=== PATIENT | female | born 1980 | race Caucasian/White ===

== ENCOUNTER 2017-11-14 13:37 | Outpatient (CLI) | payer BC ==
--- NOTE | 2017-11-14 15:45 | RAD ---
HYSTEROSALPINGOGRAM: 11/14/17 HISTORY: Infertility. Endometriosis. FINDINGS: After explaining the procedure and answering all questions, the uterine cervix was prepped. Some diff iculty was encountered advancing an HSG catheter through the cervix. Retention balloon was inflated. Approximately 10 mL of Isovue 300 contrast was instilled into the endometrial cavity, revealing brandy l contour. There was early opacification of the right fallopian tube with free spill. Continued gentl e pressure was applied with the fluid in an attempt to opacify the left fallopian tube. The tube was unable to be opacified. Excess contrast was aspirated. Patient tolerated the procedure well and was dismissed in good conditi on. IMPRESSION: 1. Nonpatent left fallopian tube, unable to be opacified with fluid pressure of contrast. 2. Indeterminate degree of cervical stenosis with some difficulty in passage of HSG catheter. POS: [facility]
== END 2017-11-14 13:38 | disposition home or self-care (01) ==
LOC: RAD 13:37
PROVIDERS: ATTEND Obstetrics & Gynecology
DX: Z31.41 Encounter for fertility testing (principal); N88.2 Stricture and stenosis of cervix uteri
CPT/HCPCS: 58340; 74740

== ENCOUNTER 2018-06-09 02:40 | Day surgery (SDC) | payer BC ==
[2018-06-09 03:14] VITALS: BP 164/91; TEMP 98.2; BMI 22.8
--- NOTE | 2018-06-09 04:02 | PDOC.FPROB ---
FMR OB H&P: HPI - History of Present Illness Chief Complaint: Ctx, Vaginal Pressure History of Present Illness: 38 yo @ 27.2 weeks presents for c/c of ctx and vaginal pressure. Pt reports last night feeling some vaginal pressure and then having a 2 hour period of ctx 15 min apart from 20-22:00. They then subsided and was able to fall asleep. She then was awoken by a ctx at 2:00 this morning and again feeling vaginal pressure. She reports having a few ctx about 30 min apart. Reports she has been drinking plenty of fluids. Denies any recent trauma or sexual intercourse. Pt denies any fever/chills. Denies any recent illness. Denies any n/v/d/c. +FM, denies any LOF, vaginal bleeding. Reports vaginal discharge but denies any odor, itching or irritation. Reports normal discharge for her this . Denies any urinary sx's such as increased frequency and burning when urinating. Denies any headaches, vision changes or swelling. Pt denies any issues with first . Delivered at term. No issues with Preeclampsia. Pt reports BP has slowly been creeping up the last few weeks. Was taken off beta yadira for bp earlier in . Primary Care Physician: Dr. Barnett FMR OB H&P: Current - Care : 2 Para: 1 Gestational age: 27.2 - OB Labs Blood type: unknown RH: unknown Antibody Screen: unknown HIV: unknown RPR: unknown HepBsAg: unknown Quad screen: unknown Gonorrhea: unknown Chlamydia: unknown - Additional Ultrasound Additional: Pt denies anything abnormal reported on U/S FMR OB H&P: History - Past Medical History PMH: Hyperthyroidism-->Now Hypothyroid, cHTN - OB History OB History: cHTN - Surgical History Sx History: Broken Femur Repair, Endometriosis Removal (2015) - Social History Social History: Denies any tobacco, alcohol or illicit drug use at this time. FMR OB H&P: Medications - Current Home Medications: Medication Instructions Recorded Confirmed Type [id number]/Iron Fum/Folic 1 each PO DAILY 05/27/16 06/09/18 History [ Tablet] Aspirin [Aspirin Chewable] 81 mg PO DAILY 06/09/18 06/09/18 History Levothyroxine Sodium 1 tab PO DAILY 06/09/18 06/09/18 History Allergies/Adverse Reactions: Allergies Allergy/AdvReac Type Severity Reaction Status Date / Time No Known Drug Allergies Allergy Verified 05/27/16 03:02 FMR OB H&P: ROS - Review of Systems General: denies: fever/chills, fatigue, recent trauma Eyes: denies: vision changes ENT: denies: nasal congestion, rhinorrhea, sore throat Cardiovascular: denies: chest pain, palpitation, edema Respiratory: denies: cough, congestion, shortness of breath Gastrointestinal: denies: abdominal pain, nausea, vomiting, diarrhea, constipation Genitourinary (Female): reports: vaginal discharge (Reports some increased vaginal discharge but has been increased throughout), contractions, vaginal pressure. denies: incontinence, hematuria, vaginal pain, vaginal bleeding Neurologic: denies: numbness, weakness, headache Integumentary: denies: itching, rash Endocrine: denies: cold intolerance, heat intolerance Hematologic/Lymphatic: denies: prolonged or excessive bleeding FMR OB H&P: Vital Signs - Maternal Vital signs: Vital Signs - First Documented Temp Pulse Resp BP 98.2 F 75 18 164/91 H 06/09/18 03:00 06/09/18 03:00 06/09/18 03:00 06/09/18 03:00 - Heart Tones Baseline: 140 Variability: moderate Acceleration: present Category: category 1 [place] contractions every: 2 seen on monitor, non regular FMR OB H&P: Physical Exam - Physical Exam General: NAD, awake, alert and oriented HEENT: normocephalic and atraumatic, PERRLA Neck: supple Heart: RRR, normal S1/S2, no murmurs/rubs/gallops, pulses present, no edema General: CTAB, no respiratory distress, good air movement, no rales/rhonchi, no wheezing, no retractions Abdomen: soft, gravid, non-tender, no masses, no hernias Musculoskeletal: normal gait and station, pulses present, FROM in all four extremities Neurological: sensation to pain,touch and proprioception grossly normal, DTR +2 , no focal deficit Skin: no rash, capillary refill <2 seconds Lymphatic: no unusual bruising or bleeding Psychiatric: good judgement and insight, normal mood and affect - Pelvic Exam Deviation from normal: Vaginal wall red, irritated. Pt reports some burning when touched SVE: closed/0/-3. Meza score: 0 FMR OB H&P: A/P - Problem List (1) Status: Acute Qualifiers: Weeks of gestation: 27 weeks Qualified Code(s): Z3A.27 - 27 weeks gestation of (2) Hypertension Current Visit: Yes Status: Acute Code(s): I10 - ESSENTIAL (PRIMARY) HYPERTENSION Qualifiers: Hypertension type: essential hypertension Qualified Code(s): I10 - Essential (primary) hypertension Disposition: 38 yo @ 27.2 weeks here to r/o labor. -Will check fibronectin at this time. -will continue FHT monitoring. Few ctx seen, not regular. Cat 1 strip. -cervical check closed/0/-3. Meza score 0. Low risk at this time. -Will check VP3 as during fibronectin pt was red and reported some pain along the vaginal wall. cHTN -Pt having elevated BP in the 140's/100's. Has had one severe range pressure. Will continue to monitor. -Will want to have close f/u early this week to discuss starting medication and possibly checking pre-E labs. Discussion: Date/Time: 06/09/18 0356 This H&P was discussed with [] who agree with the above documentation and plan.
[2018-06-09 05:18] LABS: FFN Internal QC Analyzer PASS (PASS); FFN Internal QC Cassette PASS (PASS); Fetal Fibronectin Negative (Negative)
== END 2018-06-09 05:35 | disposition home or self-care (01) ==
LOC: L&D/OP 02:40
PROVIDERS: ATTEND Family Medicine
DX: O99.89 Other specified diseases and conditions complicating pregnancy, childbirth and the puerperium (principal); R10.30 Lower abdominal pain, unspecified; R10.2 Pelvic and perineal pain; N89.8 Other specified noninflammatory disorders of vagina; O10.912 Unspecified pre-existing hypertension complicating pregnancy, second trimester; O99.282 Endocrine, nutritional and metabolic diseases complicating pregnancy, second trimester; E03.9 Hypothyroidism, unspecified; Z3A.27 27 weeks gestation of pregnancy; Z79.82 Long term (current) use of aspirin; Z79.899 Other long term (current) drug therapy
CPT/HCPCS: 82731; 87480; 87510; 87660; 99285

== ENCOUNTER 2018-08-26 07:44 | Inpatient (IN) | payer BC ==
[2018-08-26 08:11] VITALS: BMI 25.0
[2018-08-26] MEDS ORDERED: Mineral Oil PER 1 ML TOP PRN (08:47)
[2018-08-26] MEDS: Lactated Ringer's 1,000 ML IV SCH ×2 (08:50→13:41)
[2018-08-26] MEDS ORDERED: Bicitra 30 ML UDCUP ONE (09:00)
[2018-08-26] MEDS ORDERED: Terbutaline Sulfate 1 MG/ML VIAL ONE (09:00)
[2018-08-26] MEDS ORDERED: Terbutaline Sulfate 1 MG/ML VIAL SC SCH (09:00)
--- NOTE | 2018-08-26 09:35 | PRG ---
DATE OF SERVICE: 08/26/2018 OBSERVATION NOTE TIME OF SERVICE: 0900 hours. PRESENTING COMPLAINT: Breech presentation at 38 weeks gestation. HISTORY OF PRESENT ILLNESS: Ms. Ramirez is a 38-year-old, 2, para 1, who sees Dr. Maegan Barnett for . She is at 38 weeks gestation. She presents with kendall breech presentation for external cephalic version. 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 History of chronic hypertension. Blood type O positive, antibody negative. MEDICAL HISTORY: Denies. SURGICAL HISTORY: Laparoscopy for endometriosis. ALLERGIES: NONE. MEDICATIONS: 1. Labetalol 50 p.o. b.i.d. 2. Aspirin 81 mg p.o. daily. 3. Synthroid. 4. vitamins. SOCIAL HISTORY: Denies tobacco, alcohol, or IV drug use. FAMILY HISTORY: Noncontributory. REVIEW OF SYSTEMS: Noncontributory. PHYSICAL EXAMINATION: GENERAL: Pleasant female, in no acute distress. VITAL SIGNS: Blood pressure 130/82, temperature 98.5, respirations 18, and pulse 87. HEENT: Within normal limits. LUNGS: Clear to auscultation bilaterally. HEART: Regular rate and rhythm. ABDOMEN: Soft and nontender with a fundal height of 37 cm. FHTs 130s. Vulva; without lesions. Vagina without significant discharge. Cervical exam deferred. EXTREMITIES: No clubbing, cyanosis, or edema. DIAGNOSTIC DATA: Bedside ultrasound confirms persistent kendall breech presentation with infant back on the maternal left and head in the left upper quadrant with clinically adequate fluid. heart rate tracing. Nonstress test is reactive. Baseline 130s to 140s. Positive accelerations, no decelerations. Category 1 tracing. IMPRESSION: Kendall breech presentation. Posterior placenta at 38 weeks' gestation. PLAN: Terbutaline and mineral oil. Attempted external cephalic version. Induction of labor today if successful with Dr. Barnett, if not, scheduled repeat in 3 to 4 days. Job ID: [id number]
--- NOTE | 2018-08-26 10:08 | OP ---
DATE OF PROCEDURE: 08/26/2018 PREOPERATIVE DIAGNOSIS: Kendall breech presentation at 38 weeks' gestation. POSTOPERATIVE DIAGNOSIS: Cephalic after external cephalic version. PROCEDURE: External cephalic version successful. CO-SURGEON: Maegan Barnett MD ANESTHESIA: None. MEDICATIONS: Terbutaline 0.25 subcu x1 approximately 15 minutes prior to the procedure. DESCRIPTION OF PROCEDURE: The patient gave verbal and written informed consent. Cervix was examined and noted to be 1-2, 50, and -2. She was administered terbutaline. Approximately 15 minutes later, mineral oil was applied to the maternal abdomen. Ultrasound had confirmed kendall breech presentation with the head in the maternal left upper quadrant and the back along the maternal left. the fetus was breech out of the pelvis and into the left lower quadrant. Simultaneously, the head was brought in a counter-clockwise manner through the right upper quadrant right side, and with efforts over approximately 60 to 90 seconds, the version was completed. Afterwards, ultrasound confirmed cephalic presentation. Audible and visual heart tones were in the 60s to 70s. At that point in time, however, they rapidly came back up into the 120s. We will continue observation left lateral with oxygen and plan on induction approximately 2 hours . Job ID: [id number]
[2018-08-26] MEDS ORDERED: Methylergonovine 0.2 MG/ML VIAL IM PRN (10:26)
[2018-08-26] MEDS ORDERED: HYDROcodone/Acetaminophen 5/325 mg Tablet PO PRN (10:26)
[2018-08-26] MEDS ORDERED: Lidocaine 1% (PF) 30 ML VIAL SC PRN (10:26)
[2018-08-26] MEDS ORDERED: Misoprostol 200 MCG TAB PR PRN (10:26)
[2018-08-26] MEDS ORDERED: Promethazine HCl 25 MG/ML VIAL IM PRN (10:26)
[2018-08-26] MEDS ORDERED: Ibuprofen 800 MG TAB PO PRN (10:26)
[2018-08-26] MEDS ORDERED: Ondansetron PF 4 MG/2 ML Vial IVP PRN (10:26)
[2018-08-26] MEDS ORDERED: Butorphanol Tartrate 1 MG/ML VIAL SLOW IVP PRN (10:26)
[2018-08-26] MEDS ORDERED: Acetaminophen 500 MG TAB PO PRN (10:26)
[2018-08-26] MEDS ORDERED: Carboprost 250 MCG/ML AMP IM PRN (10:26)
[2018-08-26] MEDS ORDERED: NS w/ Oxytocin 10 units 500 ML IV SCH (10:30)
[2018-08-26] MEDS ORDERED: NS w/ Oxytocin 10 units 500 ML ONE (10:50)
[2018-08-26] MEDS ORDERED: Acetaminophen 325 MG TAB PO PRN (11:10)
[2018-08-26 11:41] LABS: Mean Corpuscular HGB CONC 35.1 g/dL (32.0-36.0); Mean Corpuscular Hemoglobin 33.6 pg (27.0-31.0); Mean Corpuscular Volume 95.7 fL (78.0-98.0); Mean Platelet Volume 10.9 fL (7.4-10.4); Platelet Count 121 thou/uL (130-400); RBC Distribution Width 12.9 % (11.5-14.5); Red Blood Cell (RBC) Count 4.15 mill/uL (4.20-5.40); White Blood Cell (WBC) Count 11.3 thou/uL (4.8-10.8)
[2018-08-26 11:47] LABS: Bilirubin Negative (Negative); Blood, Urine Large (Negative); Clarity CLOUDY (Clear); Glucose, Urine (Dipstick) Negative (Negative); Leukocyte Negative (Negative); Nitrite Negative (Negative); Protein, Urine (Dipstick) 30 mg/dL (Neg-Trace); Specific Gravity, Urine 1.006 (1.002-1.036); Urobilinogen 0.2 mg/dL (0.2-1.0); pH, Urine 7.5 (5.0-9.0)
[2018-08-26 11:49] LABS: Bacteria/HPF Rare-Few HPF (None Seen); Hyaline Casts/LPF 0-3 HYALINE CAST LPF (0-3 Hyaline); Pathc Cast-AUWi Flag 0.14 (0-2.49); RBC/HPF 0-3 HPF (0-3); WBC/HPF 0-3 HPF (0-3)
[2018-08-26 14:10] LABS: ALT (SGPT) 9 U/L (8-55); AST (SGOT) 26 U/L (5-34); Albumin 3.8 g/dL (3.5-5.0); Alkaline Phosphatase 110 U/L (40-150); Anion Gap 14 mmol/L (10-20); BUN (Urea Nitrogen) 11 mg/dL (7.0-18.7); Bilirubin, Total 0.5 mg/dL (0.2-1.2); Calc. Creatinine Clearance 110 mL/min (70-130); Calcium 9.5 mg/dL (7.8-10.44); Carbon Dioxide 23 mmol/L (22-29); Chloride 104 mmol/L (98-107); Estimated GFR-MDRD 90; Globulin 3.3 g/dL (2.4-3.5); Glucose 71 mg/dL (70-105); Potassium 4.1 mmol/L (3.5-5.1); Protein, Total 7.1 g/dL (6.0-8.3); Sodium 137 mmol/L (136-145)
[2018-08-26 14:42] LABS: Hep B Surf Ag Non-Reactive S/CO (NonReactive)
[2018-08-26 14:56] LABS: Syphilis Antibody Nonreactive (Nonreactive); Syphilis Antibody Index 0.03 S/CO (<1.00 Non-Reactive)
[2018-08-26] MEDS ORDERED: Labetalol HCl 100 MG/20 ML VIAL SLOW IVP PRN (16:12)
[2018-08-26] MEDS ORDERED: Labetalol HCl 100 MG/20 ML VIAL SLOW IVP SCH ×2 (16:15→19:00)
--- NOTE | 2018-08-26 16:18 | PDOC.EVN ---
Event Note - Event Note Event Note: Came to bedside to evaluate patient. SVE per RN 5-6/80/-1. SROM at 330pm with clear fluid. FHT 125, variable decels with CTX since SROM, category II. Continue monitors. Anticipate .
[2018-08-26] MEDS: NS / Oxytocin 40 units/1000ml 1,000 ML IV PRN ×2 (19:30→22:50)
[2018-08-26] MEDS: Labetalol 100 MG TAB PO SCH (21:54)
[2018-08-26] MEDS ORDERED: NS / Oxytocin 40 units/1000ml 1,000 ML ONE (22:48)
[2018-08-26] MEDS ORDERED: Lidocaine 1% (PF) 30 ML VIAL ONE (22:48)
[2018-08-27] MEDS ORDERED: Ondansetron PF 4 MG/2 ML Vial IVP PRN (01:15)
[2018-08-27] MEDS ORDERED: NS / Oxytocin 40 units/1000ml 1,000 ML IV SCH (01:15)
[2018-08-27] MEDS ORDERED: HYDROcodone/Acetaminophen 5/325 mg Tablet PO PRN ×2 (01:15)
[2018-08-27] MEDS ORDERED: Milk Of Magnesia 30 ML UDCUP PO PRN (01:15)
[2018-08-27] MEDS ORDERED: Zolpidem Tartrate 5 MG TAB PO PRN (01:15)
[2018-08-27] MEDS ORDERED: Lanolin Ointment 7 GM TUBE TOP PRN (01:15)
[2018-08-27] MEDS ORDERED: Bisacodyl 10 MG SUPP PR PRN (01:15)
[2018-08-27] MEDS ORDERED: Sodium Chloride 0.9% 1,000 ML IV SCH (01:15)
[2018-08-27] MEDS: Ibuprofen 800 MG TAB PO SCH ×4 (06:23→21:45)
[2018-08-27] MEDS: Levothyroxine Sodium 88 MCG TAB PO SCH (06:23)
[2018-08-27 06:44] LABS: Hemoglobin 11.9 g/dL (12.0-16.0); Mean Corpuscular HGB CONC 35.7 g/dL (32.0-36.0); Mean Corpuscular Hemoglobin 34.2 pg (27.0-31.0); Mean Corpuscular Volume 95.9 fL (78.0-98.0); Mean Platelet Volume 9.8 fL (7.4-10.4); Platelet Count 105 thou/uL (130-400); RBC Distribution Width 12.6 % (11.5-14.5); Red Blood Cell (RBC) Count 3.49 mill/uL (4.20-5.40); White Blood Cell (WBC) Count 12.9 thou/uL (4.8-10.8)
[2018-08-27] MEDS: Ferrous Sulfate 325 MG TAB PO SCH ×2 (08:42→08:43)
[2018-08-27] MEDS: Prenatal Vitamin 1 TAB PO SCH (08:42)
[2018-08-27] MEDS: Labetalol 100 MG TAB PO SCH ×2 (08:42→21:47)
[2018-08-27] MEDS: Docusate Calcium (SURFAK) 240 MG CAP PO SCH ×2 (08:42→21:47)
[2018-08-27] MEDS ORDERED: Adacel (T-DAP) 0.5 ML SYRINGE IM SCH (09:00)
--- NOTE | 2018-08-27 13:35 | PDOC.PP ---
Post Progress Note Post Day #: 1 Subjective: Doing well, no complaints. Some pain in perineum overnight but that is better today. Bleeding normal. PO intake tolerated: yes Flatus: yes Ambulation: yes Vital Signs (12 hours) Temp Pulse Resp BP Pulse Ox 08/27/18 12:19 97.6 F 77 20 125/84 08/27/18 08:42 69 08/27/18 08:29 98.1 F 69 20 146/89 H 97 08/27/18 04:00 98.0 F 77 20 130/86 08/27/18 02:37 80 08/27/18 01:40 98.4 F 80 18 136/84 96 Weight Weight 146 lb - Physical Examination General: NAD Cardiovascular: no m/r/g, RRR Respiratory: clear to auscultation bilaterally, non-labored breathing Abdominal: + bowel sounds, lochia, no distention, appropriately TTP Result Diagrams: 08/27/18 06:05 08/26/18 08:31 Additional Labs: Post Labs Blood Type O POSITIVE 08/26/18 08:31 Hep Bs Antigen Non-Reactive S/CO (NonReactive) 08/26/18 08:31 (1) Hypertension Code(s): I10 - ESSENTIAL (PRIMARY) HYPERTENSION Status: Acute Qualifiers: (2) Vaginal delivery Code(s): O80 - ENCOUNTER FOR FULL-TERM UNCOMPLICATED DELIVERY Status: Acute - Assessment/Plan BP much better since delivery. Will D/C home on normal dose of labetolol though the need may decrease over the coming weeks. Hypothyroidism stable - continue levothyroxine Routine PP care Stay overnight and D/C tomorrow.
[2018-08-27] MEDS ORDERED: Acetaminophen 500 MG TAB PO PRN (17:38)
--- NOTE | 2018-08-27 19:28 | OP ---
DATE OF PROCEDURE: 08/26/2018 PREOPERATIVE DIAGNOSES: 1. Term intrauterine . 2. Chronic hypertension. 3. Hypothyroidism. 4. Breech presentation status post successful external cephalic version. POSTOPERATIVE DIAGNOSES: 1. Term intrauterine . 2. Chronic hypertension. 3. Hypothyroidism. 4. Breech presentation status post successful external cephalic version. 5. First-degree perineal laceration. PROCEDURES PERFORMED: Normal spontaneous vaginal delivery and laceration repair. ANESTHESIA: Local. ESTIMATED BLOOD LOSS: 250 mL. BRIEF DELIVERY SUMMARY: This is a 38-year-old G2, now P2 with a history of chronic hypertension on labetalol, who presented with breech presentation at 38 weeks and 4 days. She underwent a successful external cephalic version earlier in the day and was started on Pitocin for induction of labor. She progressed well to complete and pushing. Throughout the labor course, there were some variable decelerations that would resolve with position changes, but were persistent throughout. well-being was a category 2 throughout the labor course. She progressed to complete and pushing. She delivered a live male , head LOP. There was a nuchal cord x1. Shoulders and body easily followed and the infant was placed on mother's abdomen. Infant Apgars were 9 at 1 minute and 9 at 5 minutes. The umbilical cord was doubly clamped and cut and cord blood was sent for analysis. Placenta delivered spontaneously and intact with 3-vessel umbilical cord. The placenta was sent to Pathology due to the history of chronic hypertension in the mother. There was a first-degree perineal laceration, which was repaired in standard running fashion using 2-0 Vicryl suture under local anesthesia with excellent hemostasis. Mom and baby were left with the nurse in excellent condition attempting to breastfeed. Job ID: [id number]
[2018-08-28] MEDS: Levothyroxine Sodium 88 MCG TAB PO SCH (05:57)
[2018-08-28] MEDS: Ibuprofen 800 MG TAB PO SCH (06:28)
[2018-08-28] MEDS: Ferrous Sulfate 325 MG TAB PO SCH (07:53)
[2018-08-28 08:27] VITALS: BP 146/98; TEMP 97.7
--- NOTE | 2018-08-28 08:48 | RAD ---
LEFT FOOT THREE VIEWS: History: Injury. Left foot pain. FINDINGS/IMPRESSION: No acute fracture or dislocation is seen. POS: [facility]
[2018-08-28] MEDS: Labetalol 100 MG TAB PO SCH (09:13)
[2018-08-28] MEDS: Docusate Calcium (SURFAK) 240 MG CAP PO SCH (09:13)
[2018-08-28] MEDS: Prenatal Vitamin 1 TAB PO SCH (09:13)
== END 2018-08-28 10:10 | disposition home or self-care (01) | DRG 807 ==
LOC: L&D/OP 07:44 → UNDOADMIN 07:44 → L&D 07:44 → EDSTATUS 09:30 → L&D 10:40 → 3SW 08-27 00:09
PROVIDERS: ADMIT Family Medicine; ATTEND Family Medicine
PROC: 10E0XZZ Delivery of Products of Conception, External Approach (ICD-10-PCS; principal; 2018-08-26)
PROC: 4A1HXCZ Monitoring of Products of Conception, Cardiac Rate, External Approach (ICD-10-PCS; 2018-08-26)
PROC: 4A1HXFZ Monitoring of Products of Conception, Cardiac Rhythm, External Approach (ICD-10-PCS; 2018-08-26)
PROC: 3E033VJ Introduction of Other Hormone into Peripheral Vein, Percutaneous Approach (ICD-10-PCS; 2018-08-26)
PROC: 0HQ9XZZ Repair Perineum Skin, External Approach (ICD-10-PCS; 2018-08-26)
PROC: 10S0XZZ Reposition Products of Conception, External Approach (ICD-10-PCS; 2018-08-26)
DX: O10.92 Unspecified pre-existing hypertension complicating childbirth (principal); Z37.0 Single live birth; Z3A.38 38 weeks gestation of pregnancy; O76 Abnormality in fetal heart rate and rhythm complicating labor and delivery; O70.0 First degree perineal laceration during delivery; O99.284 Endocrine, nutritional and metabolic diseases complicating childbirth; E03.9 Hypothyroidism, unspecified; O69.81X0 Labor and delivery complicated by cord around neck, without compression, not applicable or unspecified; O32.1XX0 Maternal care for breech presentation, not applicable or unspecified
CPT/HCPCS: 36415; 59025; 59412; 76815; 80053; 81001; 85027; 86780; 86850; 86900; 86901; 87340; 88307; 99285; J2001; J3105; J3490

== ENCOUNTER 2020-07-13 12:27 | Inpatient (IN) | payer BC ==
[2020-07-13] MEDS: Lactated Ringer's 1,000 ML IV SCH (12:46)
[2020-07-13] MEDS ORDERED: Ondansetron PF 4 MG/2 ML Vial ONE (12:46)
--- NOTE | 2020-07-13 12:47 | CT ---
Exam: CT brain PROVIDED CLINICAL HISTORY: Slurred speech COMPARISON: None FINDINGS: The ventricular system is normal in size and morphology. No evidence for intracranial hemorrhage or mass effect. The extracranial soft tissues and osseous structures demonstrate no evidence for an acute abnormality. IMPRESSION: No evidence for intracranial hemorrhage or mass effect. Findings communicated to the emergency depart ment at 12:43 PM 07/13/2020.
[2020-07-13] MEDS ORDERED: Magnesium 2 GM/50 ML BAG (IN WATER) ONE ×3 (12:54→13:39)
[2020-07-13] MEDS ORDERED: Labetalol HCl 100 MG/20 ML VIAL ONE (12:55)
[2020-07-13 12:57] LABS: #Basophils 0.1 thou/uL (0.0-0.2); #Eosinphils 0.1 thou/uL (0.0-0.7); #Lymphocytes 1.6 thou/uL (1.20-3.40); #Monocytes 0.9 thou/uL (0.11-0.59); %Basophils 1.1 % (0.0-1.0); %Eosinophils 1.2 % (0.0-10.0); %Lymphocytes 18.7 % (21.0-51.0); %Monocytes 10.2 % (0.0-10.0); %Neutrophils 68.8 % (42.0-75.0); Hemoglobin 13.1 g/dL (12.0-16.0); Mean Corpuscular HGB CONC 35.6 g/dL (32.0-36.0); Mean Corpuscular Hemoglobin 33.5 pg (27.0-31.0); Mean Corpuscular Volume 94.1 fL (78.0-98.0); Mean Platelet Volume 9.6 fL (7.4-10.4); Platelet Count 144 thou/uL (130-400); RBC Distribution Width 12.2 % (11.5-14.5); Red Blood Cell (RBC) Count 3.91 mill/uL (4.20-5.40); White Blood Cell (WBC) Count 8.8 thou/uL (4.8-10.8)
[2020-07-13 13:05] LABS: INR-International Normal Ratio 0.9; PTT 25.5 sec (22.9-36.1); Prothrombin Time 11.9 sec (12.0-14.7)
--- NOTE | 2020-07-13 13:07 | CT ---
CT ANGIOGRAM NECK WITH CONTRAST CT ANGIOGRAM BRAIN WITH CONTRAST: DATE: 07/13/2020 HISTORY: 40-year-old hypertensive female in third trimester presents with dysarthria and dizziness. Dr. Felix gave verbal report to Dr. Anderson at 1:00 PM 07/13/2020 TECHNIQUE: After IV contrast injection, arterial bolus chasing technique scan performed from pulmonic trunk to v ertex of head. Coronal and sagittal 3-D MIP reconstructions. FINDINGS: Streak artifact from dense contrast material in adjacent veins, including left subclavian vein, left brachiocephalic vein, and a large number of perivertebral collaterals, partially obscures the proximal left common carotid, left subclavian, and bilateral cervical vertebral arteries. The brachiocephalic, right subclavian, right common carotid, mid and distal portions of left common c arotid, bilateral internal carotid, M1 segments of bilateral MCAs, A1 and A2 segments of bilateral ACAs, intracranial vertebrals, basilar, P1 and P2 segments of bilateral portfolio mgr, are normal, with no jane dence of dissection, stenosis, thrombosis, or occlusion, in those particular vessels. No evidence of dural venous sinus thrombosis. IMPRESSION: Negative
[2020-07-13 13:20] LABS: ALT (SGPT) 12 U/L (8-55); AST (SGOT) 22 U/L (5-34); Albumin 3.6 g/dL (3.5-5.0); Alkaline Phosphatase 82 U/L (40-110); Anion Gap 13 mmol/L (10-20); BUN (Urea Nitrogen) 7 mg/dL (7.0-18.7); Bilirubin, Total 0.4 mg/dL (0.2-1.2); CK (CPK) 102 U/L (29-168); Calc. Creatinine Clearance 0 mL/min (70-130); Calcium 8.7 mg/dL (7.8-10.44); Carbon Dioxide 24 mmol/L (22-29); Chloride 101 mmol/L (98-107); Globulin 3.4 g/dL (2.4-3.5); Glucose 83 mg/dL (70-105); Magnesium 2.1 mg/dL (1.6-2.6); Potassium 3.9 mmol/L (3.5-5.1); Sodium 134 mmol/L (136-145)
[2020-07-13] MEDS ORDERED: Iopamidol-370 76% 500 ML 1 ML ONE (13:28)
[2020-07-13 14:20] LABS: Bilirubin Negative (Negative); Blood, Urine Negative (Negative); Clarity Clear (Clear); Glucose, Urine (Dipstick) Normal (Negative); Ketone, Urine Negative (Negative); Leukocyte Negative Leu/uL (Negative); Nitrite Negative (Negative); Protein, Urine (Dipstick) Negative (Neg-Trace); Specific Gravity, Urine 1.018 (1.002-1.036); Urobilinogen Normal mg/dL (Less than 2); pH, Urine 7.5 (5.0-9.0)
[2020-07-13] MEDS ORDERED: Magnesium Sulfate 20 gm/500 ml 20 GM/500 ML BAG ONE (14:20)
[2020-07-13] MEDS ORDERED: Butorphanol Tartrate 1 MG/ML VIAL SLOW IVP PRN (14:31)
[2020-07-13] MEDS ORDERED: Ondansetron PF 4 MG/2 ML Vial IVP PRN (14:31)
[2020-07-13] MEDS ORDERED: Calcium Gluc 4.6 MEQ/10 ML (100 MG/ML) SLOW IVP PRN (14:31)
[2020-07-13] MEDS ORDERED: hydrALAZINE 20 MG/ML VIAL SLOW IVP PRN (14:31)
[2020-07-13] MEDS ORDERED: Promethazine HCl 25 MG/ML VIAL IM PRN (14:31)
[2020-07-13] MEDS ORDERED: Magnesium Sulfate 20 gm/500 ml 20 GM/500 ML BAG IVPB SCH (14:45)
[2020-07-13] MEDS ORDERED: Labetalol HCl 100 MG/20 ML VIAL SLOW IVP SCH (14:45)
[2020-07-13] MEDS: Betamet Acet/Betamet Na Ph 30 MG/5 ML VIAL IM SCH (15:27)
[2020-07-13 15:33] LABS: Creatinine, Urine Less than 20.00 mg/dL (47-110); Protein, Urine Random Quant Less than 10 mg/dL (1-14)
[2020-07-13] MEDS: Acetaminophen 500 MG TAB PO PRN ×2 (15:36→21:05)
--- NOTE | 2020-07-13 15:37 | ULT ---
ULTRASOUND OBSTETRICAL LIMITED: DATE: 07/13/2020 HISTORY: Hypertension during : 34-year-old hypertensive female in third trimester FINDINGS: number: dey lie: Cephalic Maternal cervix: Obscured. Placenta: Anterior. No placenta previa. Amniotic fluid volume: KIMBERLY = 9cm heart rate: Not obtained anatomy not evaluated biometry: Biparietal diameter (BPD): 8.2 cm 33 w 0 d Head circumference (HC): 30.8 cm 34 w 2 d Abdominal circumference (AC): 29.0 cm 33 w 0 d Femur length (FL): 6.2 cm 32 w 0 d Average ultrasound age (AUA): 33 w 1 d Estimated date of delivery (ORLY): 08/30/2020 Estimated weight (EFW): 2058 g +/- 305 g IMPRESSION: 1) Live 3rd trimester intrauterine gestation. 2) Estimated gestational age of 33 weeks, 1 days 3) cephalic lie. 4) KIMBERLY 9 cm
--- NOTE | 2020-07-13 15:58 | PDOC.LDHP ---
Labor and Delivery H&P HPI: Speech deficit and peripheral vision loss. Pt was at a friends home this AM and started having loss of peripheral vision. After that, she was unable to find her words. She could think the word in her head but was unable to say it and speech was coming out jumbled, not really slurred. No other neuro deficits. No extr emity weakness or facial droop. Good movement throughout. Few non-painful contractions. Now all neuro symptoms are resolved and speech is back to normal/fluent. She does now have a headache. During all of the above, her BP was high as well. Peak BP was 170/110. that is now better as well after magnesium and labetolol. In ER she had a CT brain and a CT angio both of which were negative. U/S was normal. EGA c/w 33 weeks. KIMBERLY 9. Vertex. Current gestational age (weeks): 33 Dating criteria: last menstrual period, first trimester ultrasound Grav: 3 Para: 2 Current complications: hypertension (Chronic Htn on labetolol.) Abnormal US findings: No Past Medical History: Migraine WOOD Current medications: pre- vitamins, iron, other (Labetolol 100mg BID and levothyroxine 88mcg daily) Allergies/Adverse Reactions: Allergies Allergy/AdvReac Type Severity Reaction Status Date / Time No Known Drug Allergies Allergy Verified 08/26/18 08:12 Social history: none - Physical Exam Vital signs reviewed and normal: yes General: NAD, other (Neuro: no focal deficits, normal visual able, normal speech) Heart: RRR Lungs: CTAB Abdomen: gravid Extremeties: no edema FHT: category 1 - OB Labs Blood type: O RH: positive Antibody Screen: negative HIV: negative RPR: negative HEPSAg: negative 1 hour GCT: negative GBS: unknown Urine drug screen: not done Rubella: immune - Assessment Hypertensive urgency Atypical Migraine WOOD with neurological Deficits R/O preeclampsia - Plan Plan: admit to L&D, observation in L&D, informed consent obtained, magnesium for seizure prophylaxis -: Increased labetolol to 200mg BID Continue daily aspirin Continue levothyroxine Tylenol for WOOD Magnesium until preeclampsia ruled out Urine so far negative for protein Labs normal - repeat in AM Steroids started - will get second dose tomorrow
--- NOTE | 2020-07-13 16:04 | CON ---
DATE OF CONSULTATION: 07/13/2020 REQUESTING PHYSICIAN: Maegan Barnett MD. CONSULTING PHYSICIAN: Bobo Kwong MD. REASON FOR CONSULTATION: Elevated blood pressures, seen in the ER. HISTORY OF PRESENT ILLNESS: Ms. Ramirez is a 40-year-old, , G3, P2-0-0-2 with an estimated date of confinement of 08/27/2020, who presents to the emergency room complaining of acute onset of slurred speech, visual changes, and reported dizziness. She denies associated vaginal bleeding or ruptured membranes. Her care has been with Dr. Barnett, and she is currently being treated for longstanding chronic hypertension. PAST OBSTETRICAL HISTORY: Includes 2 vaginal deliveries at term. She states she had elevated blood pressures with both pregnancies. PAST MEDICAL HISTORY: Chronic hypertension since 2017 and hypothyroidism. PAST SURGICAL HISTORY: Includes a femur fracture as well as laparoscopic treatment of endometriosis. CURRENT MEDICATIONS: 1. vitamins. 2. Aspirin 81 mg daily. 3. Labetalol 100 mg p.o. b.i.d. 4. Levothyroxine 88 mcg daily. ALLERGIES: NO KNOWN ALLERGIES. SOCIAL HISTORY: Denies tobacco, alcohol, or drug use. PHYSICAL EXAMINATION: VITAL SIGNS: Blood pressures in the ER x2 are in the excess of 160/110. She was given two 10 mg of doses of labetalol in the ER. GENERAL: She is pleasant and in no acute distress. ABDOMEN: Soft, nontender, and gravid. PELVIC: Deferred. heart rate tracing is stable. No significant uterine contractions are seen. LABORATORY DATA: White count 8.8, hemoglobin and hematocrit 13.1 and 36.8, and platelet count is 144,000. PT 11.9, PTT 25.5. Chemistry shows a creatinine of 0.68. Glucose 83, total bilirubin 0.4. AST and ALT are [address] of the head shows no acute bleed. CT angiogram shows no hemorrhage from the [place]. ASSESSMENT: 1. 33-4/7-week intrauterine . 2. Chronic hypertension, rule out superimposed severe preeclampsia. PLAN: The patient will be officially placed in for observation. She will obtain serial blood pressures and labetalol for blood pressure control. Magnesium sulfate has been started for seizure prophylaxis. Betamethasone has been given for lung maturity, and she will receive a second dose in [address] Barnett has been contacted and she states that she wishes to manage the patient in consultation with OB hospitalist. Job ID: [id number]
[2020-07-13 16:09] LABS: HBSAg Index 0.21 S/CO (0-0.99); Hep B Surf Ag Non-Reactive S/CO (NonReactive); Syphilis Antibody Nonreactive (Nonreactive); Syphilis Antibody Index 0.03 S/CO (<1.00 Non-Reactive)
[2020-07-13 17:44] VITALS: BMI 25.2
[2020-07-13] MEDS ORDERED: Labetalol 100 MG TAB PO SCH (21:00)
[2020-07-14 02:18] LABS: SARS-CoV-2 MS2 Positive; SARS-CoV-2 N Gene Negative; SARS-CoV-2 S Gene Negative; SARS-CoV-2 by NAA Not Detected (NotDetected); SARS-CoV-2 orf1ab Negative
[2020-07-14 07:28] LABS: #Monocytes 0.4 thou/uL (0.11-0.59); #Neutrophils 7.6 thou/uL (1.40-6.50); %Basophils 0.4 % (0.0-1.0); %Eosinophils 0.1 % (0.0-10.0); %Lymphocytes 11.2 % (21.0-51.0); %Monocytes 4.2 % (0.0-10.0); %Neutrophils 84.2 % (42.0-75.0); Hemoglobin 12.3 g/dL (12.0-16.0); Mean Corpuscular HGB CONC 35.5 g/dL (32.0-36.0); Mean Corpuscular Hemoglobin 33.3 pg (27.0-31.0); Mean Platelet Volume 9.9 fL (7.4-10.4); Platelet Count 136 thou/uL (130-400); RBC Distribution Width 12.2 % (11.5-14.5); Red Blood Cell (RBC) Count 3.68 mill/uL (4.20-5.40)
[2020-07-14 07:57] LABS: ALT (SGPT) 10 U/L (8-55); AST (SGOT) 19 U/L (5-34); Albumin 3.3 g/dL (3.5-5.0); Alkaline Phosphatase 74 U/L (40-110); Anion Gap 15 mmol/L (10-20); BUN (Urea Nitrogen) 6 mg/dL (7.0-18.7); Bilirubin, Total 0.5 mg/dL (0.2-1.2); Calc. Creatinine Clearance 126 mL/min (70-130); Calcium 7.1 mg/dL (7.8-10.44); Carbon Dioxide 19 mmol/L (22-29); Chloride 101 mmol/L (98-107); Glucose 102 mg/dL (70-105); Protein, Total 6.3 g/dL (6.0-8.3); Sodium 131 mmol/L (136-145)
[2020-07-14] MEDS: Levothyroxine Sodium 88 MCG TAB PO SCH (08:07)
[2020-07-14] MEDS ORDERED: FLU VACC QS2020-21(6MOS UP)/PF 60 MCG/0.5 ML SYRINGE IM ONE (09:00)
[2020-07-14] MEDS: Aspirin Chewable 81 MG TAB PO SCH (09:19)
[2020-07-14] MEDS ORDERED: diphenhydrAMINE 50 MG/ML VIAL IVP SCH (12:15)
[2020-07-14] MEDS ORDERED: Metoclopramide HCl 10 MG/2 ML VIAL IVP SCH (12:15)
--- NOTE | 2020-07-14 12:23 | PDOC.LDPN ---
Labor & Delivery Progress Note - Subjective Subjective: comfortable, other (Still c/o headache) - Objective Vital signs reviewed and normal: yes (BP overnight dropped to 80's/40's and she was pre-syncopal, now 120/70) General: NAD, resting Uterine fundus: non tender SVE: not checked FHT: category 1 [place] contractions every: none Other exam findings: No edema, normal reflexes, neuro exam non-focal, speech fluent - Assessment (1) Atypical migraine Code(s): G43.009 - MIGRAINE W/O AURA, NOT INTRACTABLE, W/O STATUS MIGRAINOSUS Current Visit: Yes Status: Acute (2) History of migraine headaches Code(s): Z86.69 - PERSONAL HISTORY OF DIS OF THE NERVOUS SYS AND SENSE ORGANS Current Visit: Yes Status: Acute (3) Hypertension Code(s): I10 - ESSENTIAL (PRIMARY) HYPERTENSION Current Visit: No Status: Acute Qualifiers: (4) Current Visit: No Status: Acute Qualifiers: -: 1. Headache - still suspect atypical migraine especially now in the setting of normal BP - will give reglan and benadryl and see if that resolves it 2. Hypertension - will decrease PO labetolol for this evening to 150mg 3. Rule out preeclampsia - BP has now been normal - labs are all normal - no proteinuria - discontinue magnesium - has been on for 24 hours 4. Second dose steroid today for lung maturity 5. Discussed with Dr. Mckeon 6. Plan D/C home tomorrow if all continues to go well
[2020-07-14] MEDS: Betamet Acet/Betamet Na Ph 30 MG/5 ML VIAL IM SCH (16:18)
[2020-07-14] MEDS: Lactated Ringer's 1,000 ML IV SCH (17:13)
[2020-07-14] MEDS ORDERED: Labetalol 100 MG TAB PO SCH ×2 (21:00→22:00)
[2020-07-15] MEDS: Levothyroxine Sodium 88 MCG TAB PO SCH (06:38)
[2020-07-15 06:45] LABS: #Lymphocytes 0.8 thou/uL (1.20-3.40); #Monocytes 0.5 thou/uL (0.11-0.59); #Neutrophils 9.3 thou/uL (1.40-6.50); %Basophils 0.1 % (0.0-1.0); %Eosinophils 0.1 % (0.0-10.0); %Lymphocytes 7.2 % (21.0-51.0); %Monocytes 4.3 % (0.0-10.0); %Neutrophils 88.3 % (42.0-75.0); Hemoglobin 11.7 g/dL (12.0-16.0); Mean Corpuscular HGB CONC 34.7 g/dL (32.0-36.0); Mean Corpuscular Hemoglobin 33.2 pg (27.0-31.0); Mean Corpuscular Volume 95.8 fL (78.0-98.0); Mean Platelet Volume 9.7 fL (7.4-10.4); Platelet Count 136 thou/uL (130-400); RBC Distribution Width 12.4 % (11.5-14.5); Red Blood Cell (RBC) Count 3.53 mill/uL (4.20-5.40); White Blood Cell (WBC) Count 10.6 thou/uL (4.8-10.8)
[2020-07-15 07:10] LABS: ALT (SGPT) 9 U/L (8-55); AST (SGOT) 18 U/L (5-34); Albumin 3.3 g/dL (3.5-5.0); Alkaline Phosphatase 72 U/L (40-110); Anion Gap 13 mmol/L (10-20); BUN (Urea Nitrogen) 8 mg/dL (7.0-18.7); Bilirubin, Total 0.4 mg/dL (0.2-1.2); Calc. Creatinine Clearance 128 mL/min (70-130); Calcium 7.8 mg/dL (7.8-10.44); Carbon Dioxide 20 mmol/L (22-29); Chloride 106 mmol/L (98-107); Glucose 115 mg/dL (70-105); Potassium 4.3 mmol/L (3.5-5.1); Protein, Total 6.3 g/dL (6.0-8.3); Sodium 135 mmol/L (136-145)
[2020-07-15] MEDS ORDERED: Labetalol 100 MG TAB PO SCH ×2 (09:00→10:20)
[2020-07-15 09:11] VITALS: BP 158/96
[2020-07-15] MEDS: Aspirin Chewable 81 MG TAB PO SCH (09:11)
--- NOTE | 2020-07-15 10:26 | PDOC.DS.DS ---
Provider - Provider Date of Admission: 07/13/20 14:28 Date of Discharge: 07/15/20 Admitting Provider: Bobo Kwong MD Consultations: Other (OB Hospitalist - Dr. Kwong and Dr. Mckeon) Primary Care Physician: Bobo Kwong MD Course - Hospital Course Hospital Course: Admitted for tunnel vision and speech difficulty. Initially her blood pressure was high raising a concern for pre-eclampsia superimposed on her chronic HTN. She was admitted to L&D. Magnesium was started and labs sent. She had a CT/CT angio of her brain which were both negative. Her BP responded to one dose of labetolol and the magnesium. Her neurological symptoms all resolved and were followed by a headache. This confirmed a diagnosis of atypical migraine. We increased her PO labetolol to 200mg BID but that actually dropped her too low to 80's/40's. We backed down to 100mg BID and her BP remained stable until the morning of D/C after having coffee. I then increased to 100mg TID as her discharge dose. She will monitor closely at home and call if there are any is sues controlling her BP. I also advised she avoid coffee for now. - Labs Lab Results: 07/15/20 06:26 07/15/20 06:26 Abnormal Lab Results - Last 48 hrs 07/13/20 12:43: RBC 3.91 L, MCH 33.5 H, Lymphocytes % 18.7 L, Monocytes % 10.2 H, Basophils % 1.1 H, Monocytes # 0.9 H 07/13/20 12:43: Sodium 134 L, Albumin/Globulin Ratio 1.1 L 07/13/20 12:43: PT 11.9 L 07/13/20 13:52: Urine Creatinine Less than 20.00 L 07/13/20 23:14: Magnesium 6.2 H 07/14/20 06:52: Sodium 131 L, Carbon Dioxide 19 L, BUN 6 L, Calcium 7.1 L, Albumin 3.3 L, Albumin/Globulin Ratio 1.1 L 07/14/20 06:52: RBC 3.68 L, Hct 34.6 L, MCH 33.3 H, Neutrophils % 84.2 H, Lymphocytes % 11.2 L, Neutrophils # 7.6 H, Lymphocytes # 1.0 L 07/15/20 06:26: Sodium 135 L, Carbon Dioxide 20 L, Albumin 3.3 L, Albumin/Globulin Ratio 1.1 L 07/15/20 06:26: RBC 3.53 L, Hgb 11.7 L, Hct 33.8 L, MCH 33.2 H, Neutrophils % 8 8.3 H, Lymphocytes % 7.2 L, Neutrophils # 9.3 H, Lymphocytes # 0.8 L - Physical Exam Vitals: Vital Signs (12 hours) Pulse BP 07/15/20 09:10 82 158/96 H Weight Weight 147 lb Physical Exam: The patient was seen and examined on the day of discharge. Gen: NAD HEENT: normal Chest: CTA bilaterally CV: RRR, no murmur Abd: soft, NT, normoactive bowel sounds FHT 135, moderate variability, Category I tracing [place]: rare contractions Neuro: non-focal, speech fluent, no residual neuro symptoms Problem - Discharge Plan Plan of Treatment: 1. D/C home today 2. Increased labetolol to 100mg TID 3. Monitor BP at home and call me if it remains high 4. F/U scheduled for 07/26 - Problem (1) Atypical migraine Code(s): G43.009 - MIGRAINE W/O AURA, NOT INTRACTABLE, W/O STATUS MIGRAINOSUS Status: Acute (2) History of migraine headaches Code(s): Z86.69 - PERSONAL HISTORY OF DIS OF THE NERVOUS SYS AND SENSE ORGANS Status: Acute (3) Hypertension Code(s): I10 - ESSENTIAL (PRIMARY) HYPERTENSION Status: Acute Qualifiers: (4) Status: Acute Qualifiers: - Time spent with Patient (mins): 35 Plan - Discharge Medications Home Medications: Medication Instructions Recorded Confirmed Type Axn142/Iron Fum/Folic 1 each PO DAILY 05/27/16 07/14/20 History [ Tablet] Aspirin Chewable [Aspirin Chewable 81 mg PO DAILY 06/09/18 07/14/20 History Tablet] Levothyroxine Sodium 1 tab PO DAILY 06/09/18 07/14/20 History Labetalol [Normodyne] 1 cap PO BID 08/26/18 07/14/20 History Ferrous Sulfate [Feosol] 325 mg PO BID-WM tab 08/28/18 07/14/20 Rx Allergies: No Known Drug Allergies Allergy (Verified 07/13/20 17:41) - Discharge Instructions Activity:: Activity as Tolerated Nourishment:: Regular Diet Additional Dietary Instructions:: Avoid caffeine - Follow up Plan Referrals: Bobo Kwong MD [Primary Care Provider] - Maegan Barnett MD [Active] - (Already scheduled on 07/26/20) Disposition: HOME Quality - Care Measures CORE MEASURES:: N/A
== END 2020-07-15 11:50 | disposition home or self-care (01) | DRG 833 ==
LOC: ERS 12:27 → L&D/OP 14:26 → L&D 14:28 → OBSVTOIN 14:28
PROVIDERS: ADMIT Obstetrics & Gynecology; ATTEND Obstetrics & Gynecology
DX: O99.353 Diseases of the nervous system complicating pregnancy, third trimester (principal); G43.009 Migraine without aura, not intractable, without status migrainosus; O10.913 Unspecified pre-existing hypertension complicating pregnancy, third trimester; Z20.828 Contact with and (suspected) exposure to other viral communicable diseases; I16.0 Hypertensive urgency; Z3A.33 33 weeks gestation of pregnancy
CPT/HCPCS: 36415; 36416; 70450; 70496; 70498; 76815; 80053; 81003; 82550; 82570; 83735; 84156; 84484; 85025; 85610; 85730; 86780; 86850; 86900; 86901; 87081; 87340; 87635; 93005; 94760; J0702; J1200; J2405; J2765; J3475; Q9967; U0003

== ENCOUNTER 2020-08-13 05:30 | Inpatient (IN) | payer BC ==
[2020-08-13] MEDS ORDERED: Butorphanol Tartrate 1 MG/ML VIAL SLOW IVP PRN (07:03)
[2020-08-13] MEDS ORDERED: Ibuprofen 800 MG TAB PO PRN (07:03)
[2020-08-13] MEDS ORDERED: Carboprost 250 MCG/ML AMP IM PRN (07:03)
[2020-08-13] MEDS ORDERED: Misoprostol 200 MCG TAB PR PRN (07:03)
[2020-08-13] MEDS ORDERED: Lidocaine 1% (PF) 30 ML VIAL SC PRN (07:03)
[2020-08-13] MEDS ORDERED: HYDROcodone/Acetaminophen 5/325 mg Tablet PO PRN ×2 (07:03→16:06)
[2020-08-13] MEDS ORDERED: Meperidine HCl/PF 25 MG/ML VIAL IM/IV PRN (07:03)
[2020-08-13] MEDS ORDERED: Acetaminophen 500 MG TAB PO PRN (07:03)
[2020-08-13] MEDS ORDERED: NS / Oxytocin 40 units/1000ml 1,000 ML IV PRN (07:03)
[2020-08-13] MEDS ORDERED: Ondansetron PF 4 MG/2 ML Vial IVP PRN ×2 (07:03→10:50)
[2020-08-13] MEDS ORDERED: Promethazine HCl 25 MG/ML VIAL IM PRN ×2 (07:03→10:50)
[2020-08-13] MEDS ORDERED: Methylergonovine 0.2 MG/ML VIAL IM PRN (07:03)
[2020-08-13 07:18] VITALS: BMI 25.4
[2020-08-13] MEDS: Lactated Ringer's 1,000 ML IV SCH ×3 (07:38→12:13)
[2020-08-13] MEDS: NS w/ Oxytocin 30 units 500 ML IV SCH ×6 (08:34→16:14)
[2020-08-13] MEDS ORDERED: Labetalol HCl 100 MG/20 ML VIAL SLOW IVP PRN (08:36)
--- NOTE | 2020-08-13 08:38 | PDOC.LDHP ---
Labor and Delivery H&P Chief complaint: scheduled induction HPI: IOL for uncontrolled chronic Htn. No superimposed preeclampsia at this time. BP has just been more difficult to control requiring increasing doses of labetolol. Currently she is on 200mg BID. BP ranges from 130's/80's to severe range pressures of 160's/100's. Current gestational age (weeks): 38 Due date: 08/27/20 Dating criteria: last menstrual period, first trimester ultrasound Grav: 3 Para: 2 Current complications: hypertension Abnormal US findings: No Past Medical History: Chronic Htn, Hypothyroidism Current medications: pre-dimitry vitamins, other (Labetolol 200mg BID Levothyroxine 100mcg daily) Allergies/Adverse Reactions: Allergies Allergy/AdvReac Type Severity Reaction Status Date / Time No Known Drug Allergies Allergy Verified 08/13/20 07:05 Social history: none - Physical Exam Vital signs reviewed and normal: yes General: NAD, resting Heart: RRR Lungs: CTAB Abdomen: gravid Extremeties: no edema FHT: category 1 - Vaginal Exam cm dilated: 3 Effacement: 75% Station: -1 - OB Labs Blood type: O RH: positive Antibody Screen: negative HIV: negative RPR: negative HEPSAg: negative 1 hour GCT: negative GBS: negative Urine drug screen: not done Rubella: immune - Assessment L&D Assessment: medically indicated induction GBS negative Chronic Htn - Plan Plan: admit to L&D, cervical ripening, labor augmentation if indicated -: Cooks balloon placed without difficulty. Pitocin started per protocol. Continue to titrate to regular contractions. Epidural once uncomfortable.
[2020-08-13 09:35] LABS: Hemoglobin 12.5 g/dL (12.0-16.0); Mean Corpuscular HGB CONC 35.6 g/dL (32.0-36.0); Mean Corpuscular Hemoglobin 33.7 pg (27.0-31.0); Mean Corpuscular Volume 94.6 fL (78.0-98.0); Mean Platelet Volume 10.8 fL (7.4-10.4); Platelet Count 159 thou/uL (130-400); RBC Distribution Width 12.6 % (11.5-14.5); Red Blood Cell (RBC) Count 3.71 mill/uL (4.20-5.40)
[2020-08-13 09:49] LABS: ALT (SGPT) 27 U/L (8-55); AST (SGOT) 27 U/L (5-34); Albumin 3.3 g/dL (3.5-5.0); Alkaline Phosphatase 110 U/L (40-110); Anion Gap 13 mmol/L (10-20); BUN (Urea Nitrogen) 11 mg/dL (7.0-18.7); Bilirubin, Total 0.3 mg/dL (0.2-1.2); Calc. Creatinine Clearance 123 mL/min (70-130); Calcium 8.7 mg/dL (7.8-10.44); Carbon Dioxide 24 mmol/L (22-29); Chloride 103 mmol/L (98-107); Globulin 3.2 g/dL (2.4-3.5); Glucose 96 mg/dL (70-105); Protein, Total 6.5 g/dL (6.0-8.3); Sodium 136 mmol/L (136-145)
[2020-08-13] MEDS ORDERED: Fentanyl 4 mcg/Bup 0.1% Cadd 100 ML ONE (10:02)
[2020-08-13 10:07] LABS: Syphilis Antibody Nonreactive (Nonreactive); Syphilis Antibody Index 0.03 S/CO (<1.00 Non-Reactive)
[2020-08-13 10:08] LABS: HBSAg Index 0.29 S/CO (0-0.99); Hep B Surf Ag Non-Reactive S/CO (NonReactive)
[2020-08-13] MEDS: hydrALAZINE 20 MG/ML VIAL SLOW IVP PRN ×2 (10:39→13:36)
[2020-08-13] MEDS ORDERED: ePHEDrine 50 MG/ML VIAL SLOW IVP PRN (10:50)
[2020-08-13] MEDS ORDERED: Lactated Ringer's 500 ML IV PRN (10:50)
[2020-08-13] MEDS ORDERED: diphenhydrAMINE 50 MG/ML VIAL IVP PRN (10:50)
[2020-08-13] MEDS ORDERED: Acetaminophen 325 MG TAB PO PRN (10:50)
[2020-08-13] MEDS ORDERED: Naloxone HCl 0.4 mg/ml Vial IVP PRN ×2 (10:50)
[2020-08-13] MEDS ORDERED: Fentanyl 4 mcg/Bupivacaine 0.1% Cassette 100 ML EPIDURAL SCH (11:00)
[2020-08-13] MEDS ORDERED: Communication Order-Pharmacy FS SCH (11:00)
[2020-08-13] MEDS ORDERED: Bupivacaine 0.25% HCL 30 ML VIAL ONE (12:19)
--- NOTE | 2020-08-13 14:10 | PDOC.OPDEL ---
OB Operative/Delivery Note Delivery Dr/Surgeon: Anibal Pre-Delivery Diagnosis: medically indicated induction Procedure/Post Delivery Dx: spontaneous vaginal delivery (Head OA, loose nuchal cord x2, reduced, shoulders and body easily followed. Mouth and nares bulb suctioned. Baby placed on mother's abdomen.) Weeks gestation: 38 Anesthesia: epidural - Findings A Sex: female - 1 min: 9 - 5 min: 9 - Additional Findings/Plan Placenta delivered: spontaneous (Intact, 3VC,) Repaired Obstetrical Laceration: 1st degree (MIdline perineal, repaired with 2.0 vicryl in standard running fashion)
[2020-08-13] MEDS ORDERED: Milk Of Magnesia 30 ML UDCUP PO PRN (16:06)
[2020-08-13] MEDS ORDERED: Bisacodyl 10 MG SUPP PR PRN (16:06)
[2020-08-13] MEDS ORDERED: hydrALAZINE 20 MG/ML VIAL SLOW IVP PRN (16:06)
[2020-08-13] MEDS ORDERED: diphenhydrAMINE 25 MG CAP PO PRN (16:06)
[2020-08-13] MEDS ORDERED: Benzocaine-Menthol 82.5 ML CAN TOP PRN (16:06)
[2020-08-13] MEDS: Ferrous Sulfate 325 MG TAB PO SCH (16:13)
[2020-08-13] MEDS ORDERED: NS w/ Oxytocin 30 units 500 ML IVPB SCH (16:15)
[2020-08-13] MEDS: Ibuprofen 800 MG TAB PO SCH (18:28)
[2020-08-13] MEDS ORDERED: Labetalol 100 MG TAB PO SCH (21:00)
[2020-08-13] MEDS: Docusate Calcium (SURFAK) 240 MG CAP PO SCH (21:28)
[2020-08-13] MEDS: Labetalol 100 MG TAB PO SCH (21:28)
[2020-08-14] MEDS: Ibuprofen 800 MG TAB PO SCH ×2 (00:57→09:14)
[2020-08-14] MEDS ORDERED: Levothyroxine Sodium 88 MCG TAB PO SCH ×2 (06:00→09:00)
[2020-08-14] MEDS: Labetalol 100 MG TAB PO SCH (08:27)
[2020-08-14] MEDS: Docusate Calcium (SURFAK) 240 MG CAP PO SCH (08:27)
[2020-08-14] MEDS: Ferrous Sulfate 325 MG TAB PO SCH (08:28)
[2020-08-14] MEDS ORDERED: Adacel (T-DAP) 0.5 ML SYRINGE IM ONE (09:00)
--- NOTE | 2020-08-14 11:59 | PDOC.PP ---
Post Progress Note Post Day #: 1 Subjective: Feeling well. Wants to go home this afternoon if baby is released. Baby was SGA and had some low glucoses. Stable now. PO intake tolerated: yes Flatus: yes Ambulation: yes Vital Signs (12 hours) Temp Pulse Resp BP BP 08/14/20 08:27 68 139/91 H 08/14/20 08:22 97.7 F 68 18 139/91 H 08/14/20 04:05 98.1 F 83 18 121/69 08/14/20 00:55 98.1 F 68 18 115/63 Weight Weight 148 lb - Physical Examination General: NAD Cardiovascular: no m/r/g, RRR Respiratory: clear to auscultation bilaterally, non-labored breathing Abdominal: + bowel sounds, lochia, no distention, appropriately TTP Result Diagrams: 08/13/20 07:45 08/13/20 07:45 Additional Labs: Post Labs Hep Bs Antigen Non-Reactive S/CO (NonReactive) 08/13/20 07:45 Blood Type O POSITIVE 08/13/20 07:45 (1) Hypertension Code(s): I10 - ESSENTIAL (PRIMARY) HYPERTENSION Status: Acute Qualifiers: (2) Vaginal delivery Code(s): O80 - ENCOUNTER FOR FULL-TERM UNCOMPLICATED DELIVERY Status: Acute - Assessment/Plan Routine PP care BP has come down since delivery Continue labetolol 200mg BID for now, may need to titrate down in the coming days Potential D/C home this afternoon is baby is stable/ready
[2020-08-14 13:07] VITALS: BP 125/83; TEMP 97.6
== END 2020-08-14 16:40 | disposition home or self-care (01) | DRG 807 ==
LOC: L&D 06:07 → 3SW 16:22
PROVIDERS: ADMIT Family Medicine; ATTEND Family Medicine
PROC: 10E0XZZ Delivery of Products of Conception, External Approach (ICD-10-PCS; principal; 2020-08-13)
PROC: 0HQ9XZZ Repair Perineum Skin, External Approach (ICD-10-PCS; 2020-08-13)
PROC: 0U7C7ZZ Dilation of Cervix, Via Natural or Artificial Opening (ICD-10-PCS; 2020-08-13)
PROC: 3E033VJ Introduction of Other Hormone into Peripheral Vein, Percutaneous Approach (ICD-10-PCS; 2020-08-13)
DX: O10.02 Pre-existing essential hypertension complicating childbirth (principal); Z37.0 Single live birth; Z20.822 Contact with and (suspected) exposure to COVID-19; O70.0 First degree perineal laceration during delivery; E03.9 Hypothyroidism, unspecified; O99.284 Endocrine, nutritional and metabolic diseases complicating childbirth; O69.1XX0 Labor and delivery complicated by cord around neck, with compression, not applicable or unspecified; O36.5930 Maternal care for other known or suspected poor fetal growth, third trimester, not applicable or unspecified; Z3A.38 38 weeks gestation of pregnancy; Z79.82 Long term (current) use of aspirin; Z79.890 Hormone replacement therapy
CPT/HCPCS: 36415; 51702; 80053; 81003; 85027; 86780; 86850; 86900; 86901; 87340; J0360; J2590; S0020